=== PATIENT | female | born 1975 | race Two or more races ===

== ENCOUNTER 2021-02-10 11:22 | Emergency (ER) | payer OTHER ==
[~2021-02-10] VITALS: Ht 162.6 cm; Wt 47.6 kg
== END 2021-02-10 14:31 | disposition home or self-care (01) ==
LOC: ER 11:22
DX: U07.1 COVID-19 (principal)

== ENCOUNTER 2021-04-22 18:40 | Emergency (ER) | payer OTHER ==
[~2021-04-22] VITALS: Ht 162.6 cm; Wt 48.1 kg
== END 2021-04-23 00:22 | disposition home or self-care (01) ==
LOC: ER 18:40
DX: R11.10 Vomiting, unspecified (principal); Z20.822 Contact with and (suspected) exposure to COVID-19